=== PATIENT | male | born 1995 | race Caucasian/White ===

== ENCOUNTER 2016-11-09 14:35 | Emergency (ER) | payer OTHER ==
[~2016-11-09] VITALS: Ht 175.3 cm; Wt 77.0 kg
[2016-11-09 14:40] VITALS: Ht 175.3 cm; Wt 77.0 kg
[2016-11-09] MEDS ORDERED: IBUPROFEN 600 MG TAB PO ONE (16:00)
--- NOTE | 2016-11-09 16:20 | RADRPT ---
PROCEDURE: XR Humerus. CLINICAL INDICATION: Generalized pain TECHNIQUE: AP and lateral views of the left humerus were obtained. COMPARISON: No prior studies are available for comparison. FINDINGS: There is normal mineralization and alignment. No fracture or osseous lesion is identified. There are normal joints without evidence of arthritis or effusion. The soft tissues are unremarkable. IMPRESSION: 1. No acute osseous abnormality. RPTAT: [facility] .Matty Aponte MD, MD Date Time Electronically viewed and signed by .Matty Aponte MD, on 11/09/2016 16:20 .d/
[2016-11-09] MEDS ORDERED: IBUP-1542 PO (16:38)
--- NOTE | 2016-11-09 16:42 | ERD ---
ER Documentation Chief Complaint Date/Time DATE: 11/09/16 TIME: 16:40 Chief Complaint LT ARM PAIN S/P FALL TODAY HPI 29 mL complains of pain in his left arm after falling and getting poked with a sharp piece of metal. He has no lacerations or bleeding. The pain and swelling is on the medial aspect of his left biceps. He has no restricted range of motion or weakness except mildly due to pain. ROS All systems reviewed and are negative except as per history of present illness. Medications Home Meds Active Scripts Ibuprofen* (Motrin*) 600 Mg Tab, 600 MG PO Q6, #15 TAB Prov:LINDSAY ANGULO MD 11/09/16 Allergies Allergies: Coded Allergies: No Known Allergy (Unverified , 10/23/15) PMhx/Soc Medical and Surgical Hx: pt denies Medical Hx, pt denies Surgical Hx History of Surgery: No Anesthesia Reaction: No Hx Neurological Disorder: No Hx Respiratory Disorders: No Hx Cardiac Disorders: No Hx Psychiatric Problems: No Hx Miscellaneous Medical Probl: No Hx Alcohol Use: No Hx Substance Use: No Hx Tobacco Use: No Physical Exam Vitals Vital Signs Date Time Temp Pulse Resp B/P Pulse Ox O2 Delivery O2 Flow Rate FiO2 11/09/16 14:40 98.2 80 18 137/89 99 Physical Exam Const: [] Alert, [id number] per Head: Atraumatic Eyes: Normal Conjunctiva ENT: Normal External Ears, Nose and Mouth. Neck: Full range of motion..~ No meningismus. Resp: Clear to auscultation bilaterally Cardio: Regular rate and rhythm, no murmurs Abd: Soft, non tender, non distended. Normal bowel sounds Skin: No petechiae or rashes. There is a bruise and mild swelling on the medial aspect of his left biceps. Is no appreciable deficits or deformities or erythema or warmth. Pulses are 2+ distal to the injury the patient is neurovascular intact without appreciable tendon or neurologic deficit. Back: No midline or flank tenderness Ext: No cyanosis, or edema Neur: Awake and alert Psych: Normal Mood and Affect Results 24 hrs Current Medications Medications (Trade) Dose Ordered Sig/Moi Route PRN Reason Start Time Stop Time Status Last Admin Dose Admin Ibuprofen (Motrin) 600 mg ONCE ONCE PO 11/09/16 16:00 11/09/16 16:01 DC 11/09/16 15:54 Procedures/MDM X-ray left humerus 2V Interpreted by me: Bones: No fracture Joints: No dislocation Foreign body: None. Impression-normal left humerus x-ray Patient was placed in left arm sling. Patient has signs and symptoms of left arm contusion without evidence of fracture, dislocation, foreign body, lacerations, bacterial infection, deficits. He will be treated with ibuprofen instructions for stretching and ice and instruction to follow-up with his primary doctor this week. Return sooner for fevers, redness, new worsening symptoms. Departure Diagnosis: Primary Impression: Injury of upper extremity Encounter type: initial encounter Laterality: left Qualified Code: S49.92XA - Injury of upper extremity, left, initial encounter Condition: Stable Patient Instructions: Contusion, Upper Extremity Additional Instructions: X-ray normal. Likely contusion. Recheck with primary doctor this week or for new or worsening symptoms. Recommend stretching to prevent stiffness. LINDSAY ANGULO MD Nov 09, 2016 16:42
== END 2016-11-09 16:50 | disposition home or self-care (01) ==
LOC: FTE 14:35
DX: S49.92XA Unspecified injury of left shoulder and upper arm, initial encounter (principal); W22.8XXA Striking against or struck by other objects, initial encounter; Y92.9 Unspecified place or not applicable
CPT/HCPCS: 73060; Z7502; Z7610

== ENCOUNTER → 2017-01-10 | Emergency (ER) | payer OTHER ==
[~2017-01-10] VITALS: Ht 175.3 cm; Wt 72.5 kg
[~2017-01-10] MED LIST: IBUP-1542 PO; NAPR-260 PO
[2017-01-10 20:43] VITALS: Ht 175.3 cm; Wt 72.5 kg
[2017-01-10 22:34] VITALS: BP 116/74; PULSE 84; RESP 20; TEMP 99.5
--- NOTE | 2017-01-10 23:02 | ERD ---
ER Documentation Chief Complaint Date/Time DATE: 01/10/17 TIME: 22:56 Chief Complaint sore throat/mouth sores x 4 days. also c/o difficulty swallowing HPI This patient is a 21-year-old male presenting to the emergency department with complaints of multiple mouth sores ongoing intermittently for the past 4 days. Additionally he has throat pain. Symptoms are currently mild. Symptoms are improving. He denies fevers, urinary symptoms, cough, chest pain, shortness of breath, or other symptoms currently. As an after thought, the patient did mention intermittent hematuria, however he has not experiencing that now. 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 The patient states he did not do that. ROS All systems reviewed and are negative except as per history of present illness. Medications Home Meds Active Scripts Naproxen* (Naprosyn*) 500 Mg Tablet, 500 MG PO BID Y for PAIN AND/OR INFLAMMATION, #30 TAB Prov:BAYLEE SOLIZ PA-C 01/10/17 Ibuprofen* (Motrin*) 600 Mg Tab, 600 MG PO Q6, #15 TAB Prov:LINDSAY ANGULO MD 11/09/16 Allergies Allergies: Coded Allergies: No Known Allergy (Unverified , 01/10/17) PMhx/Soc History of Surgery: No Anesthesia Reaction: No Hx Neurological Disorder: No Hx Respiratory Disorders: No Hx Cardiac Disorders: No Hx Psychiatric Problems: No Hx Miscellaneous Medical Probl: No Hx Alcohol Use: No Hx Substance Use: No Hx Tobacco Use: No Physical Exam Vitals Vital Signs Date Time Temp Pulse Resp B/P Pulse Ox O2 Delivery O2 Flow Rate FiO2 01/10/17 22:34 99.5 84 20 116/74 100 Room Air 01/10/17 20:43 99.5 96 20 133/74 99 Physical Exam Const: Nontoxic, well-appearing male in no acute distress. Head: Atraumatic Eyes: Normal Conjunctiva ENT: Normal External Ears, Nose and Mouth. There are multiple shallow ulcerations noted to the mucosa. Neck: Full range of motion..~ No meningismus. Resp: Clear to auscultation bilaterally Cardio: Regular rate and rhythm, no murmurs Abd: Soft, non tender, non distended. Normal bowel sounds Skin: No petechiae or rashes Back: No midline or flank tenderness Ext: No cyanosis, or edema Neur: Awake and alert Psych: Normal Mood and Affect Procedures/MDM 29-year-old male presenting to the emergency department with complaints of ulcerations to his mouth. On physical examination, vitals are within normal limits. The patient does have multiple shallow ulcerations to his mouth most likely a viral etiology. These may be oral apthae, however I advised patient to follow-up with his primary care physician if they do not resolve for further evaluation and possible treatment. The patient is stable for outpatient management with a prescription for Magic mouthwash. I advised the patient that he must follow-up with the primary care physician and possible nephrology for the intermittent hematuria that he has been experiencing. I do not feel that he required further workup in the department at this time as the hematuria was not his chief complaint, and he did have an unremarkable here previously. Strict ER return precautions were discussed. Departure Diagnosis: Primary Impression: Oral aphthae Condition: Fair Patient Instructions: When Your Child Has Mouth Sores Referrals: ON LICENSE OF [facility] YOU HAVE RECEIVED A MEDICAL SCREENING EXAM AND THE RESULTS INDICATE THAT YOU DO NOT HAVE A CONDITION THAT REQUIRES URGENT TREATMENT IN THE EMERGENCY DEPARTMENT. FURTHER EVALUATION AND TREATMENT OF YOUR CONDITION CAN WAIT UNTIL YOU ARE SEEN IN YOUR DOCTORS OFFICE WITHIN THE NEXT 1-2 DAYS. IT IS YOUR RESPONSIBILITY TO MAKE AN APPOINTMENT FOR FOLOW-UP CARE. IF YOU HAVE A PRIMARY DOCTOR --you should call your primary doctor and schedule an appointment IF YOU DO NOT HAVE A PRIMARY DOCTOR YOU CAN CALL OUR PHYSICIAN REFERRAL HOTLINE AT IF YOU CAN NOT AFFORD TO SEE A PHYSICIAN YOU CAN CHOSE FROM THE FOLLOWING [facility] [address] [facility]. [facility] [address] [facility]. [facility] [address] [facility]. [facility] [address] [facility]. [facility] [address] [facility]. [facility]. [address] [place] Additional Instructions: Follow up with your PCP within the next 1-3 days for a repeat evaluation. If you require a referral to a specialist, your Primary Care Provider may be able to provide this for you. In most patient cases, a referral is not required. If you have further questions regarding this matter, please ask your Primary Care Provider. Return the the emergency department immediately if symptoms worsen or change. If you have any questions regarding medications, ask your pharmacist or us before you leave. If any adverse reactions, occur while taking your medications, discontinue the treatment and return to the emergency department immediately. If any new or worsening symptoms, uncontrolled fevers, or other unexplained symptoms occur, return to the emergency department immediately. Take your medications as directed, and complete the entire course of treatment. BAYLEE SOLIZ PA-C Jan 10, 2017 23:02
== END | disposition home or self-care (01) ==
LOC: FTE 20:39
DX: K12.0 Recurrent oral aphthae (principal)
CPT/HCPCS: 99283

== ENCOUNTER 2018-12-10 10:35 | Day surgery (SDC) | payer OTHER ==
[2018-12-10] VITALS (12 sets, daily range): BP systolic 110–124; BP diastolic 60–70; PULSE 65–78; RESP 11–21; Ht 175.3 cm; Wt 74.4 kg
[~2018-12-10] VITALS: Ht 175.3 cm; Wt 74.4 kg
[~2018-12-10 10:35] MED LIST changes: +CEFAZOLIN 2 GM/50 ML (PMX) 50 ML IVPB ONE; -NAPR-260 PO; +NAPR-985 PO
--- NOTE | 2018-12-10 12:47 | HPN ---
Date/Time of Note Date/Time of Note DATE: 12/10/18 TIME: 12:47 Interval H&P Admission Note Pt. seen H&P reviewed: No system changes PAYAL HWANG MD December 10, 2018 12:47
--- NOTE | 2018-12-10 12:48 | PREAC ---
Date/Time of Note Date/Time of Note DATE: 12/10/18 TIME: 12:47 Anesthesia Eval and Record Evaluation Time Pre-Procedure Interview DATE: 12/10/18 TIME: 12:47 Age 23 Sex male NPO: 8 hrs Preoperative diagnosis Nephrolithiasis Planned procedure Cystoscopy Past Medical History Past Medical History: None Surgery & Anesthesia Issues No known issue Meds Anticoagulation: No Beta Sagar within 24 hr: No Reason Beta Sagar not given: Pt. not on B-Sagar Discontinued Scripts Naproxen* (Naprosyn*) 500 Mg Tablet, 500 MG PO BID PRN for PAIN AND/OR INFLAMMATION, #30 TAB Prov:BAYLEE SOLIZ PA-C 01/10/17 Ibuprofen* (Motrin*) 600 Mg Tab, 600 MG PO Q6, #15 TAB Prov:LINDSAY ANGULO MD 11/09/16 Meds reviewed: Yes Allergies Coded Allergies: No Known Allergy (Unverified , 12/10/18) Allergies Reviewed: Yes Labs/Studies Labs Reviewed: Reviewed by anesthesiologist test: N/A Pre-procedure Exam Last vitals Vital Signs Date Temp Pulse Resp B/P (MAP) Pulse Ox O2 O2 Flow FiO2 Time Delivery Rate 12/10/18 98.0 65 16 111/60 100 Room Air 11:22 (77) Airway: Adequate mouth opening Mallampati: Mallampati II Teeth: Normal Lung: Normal Heart: Normal ASA Physical Status ASA physical status: 2 Emergency: None Planned Anesthetic General/MAC: LMA Pre-operative Attestations Prior to commencing anesthesia and surgery, the patient was re-evaluated, there was verification of: *The patient's identity *The results of appropriate recent lab work and preoperative vital signs *The above evaluation not changing prior to induction *Anesthetic plan, risk benefits, alternative and complications discussed with patient/family; questions answered; patient/family understands, accepts and wishes to proceed. SAMUEL NICHOLAS MD December 10, 2018 12:48
[2018-12-10] MEDS ORDERED: CEFAZOLIN 1 GM INJ ONE (12:52)
[2018-12-10] MEDS ORDERED: PROPOFOL 20 ML ONE (12:52)
[2018-12-10] MEDS ORDERED: MIDAZOLAM 1 MG/ML 2 ML INJ ONE (12:53)
[2018-12-10] MEDS ORDERED: IOHEXOL 300MG/ML 30 ML BTL ONE (12:55)
[2018-12-10] MEDS ORDERED: IOHEXOL 300MG/ML 30 ML BTL INJ ONE (13:00)
--- NOTE | 2018-12-10 13:58 | PAC ---
Date/Time of Note Date/Time of Note DATE: 12/10/18 TIME: 13:58 Post-Anesthesia Notes Post-Anesthesia Note Last documented vital signs Vital Signs Date Temp Pulse Resp B/P (MAP) Pulse Ox O2 O2 Flow FiO2 Time Delivery Rate 12/10/18 98.0 65 16 111/60 100 Room Air 11:22 (77) Activity: WNL Respiratory function: WNL Cardiovascular function: WNL Mental status: Baseline Pain reasonably controlled: Yes Hydration appropriate: Yes Nausea/Vomiting absent: Yes SAMUEL NICHOLAS MD December 10, 2018 13:58
[2018-12-10] MEDS ORDERED: FENTAnyl 50 MCG/ML VIAL IV PRN (14:00)
[2018-12-10] MEDS ORDERED: OXYCODONE/ACETAMINOPHEN (5/325) TAB PO PRN (14:00)
[2018-12-10] MEDS ORDERED: HYDROCODONE/APAP (5/325) TAB PO PRN (14:00)
[2018-12-10] MEDS ORDERED: HYDROmorphONE 1 MG/5 ML IV SYRINGE IV PRN (14:00)
[2018-12-10] MEDS ORDERED: KETOROLAC 30 MG INJ IV PRN (14:00)
[2018-12-10] MEDS: ONDANSETRON 4 MG INJ IV PRN ×2 (14:04→15:13)
--- NOTE | 2018-12-10 14:10 | OPR ---
Date/Time of Note Date/Time of Note DATE: 12/10/18 TIME: 14:03 Operative Report Procedure Date: December 10, 2018 Preoperative Diagnosis Gross hematuria Postoperative Diagnosis Same bleeding is coming from the left ureter/left kidney Operation/Procedure Performed Cystoscopy and bilateral retrograde pyelograms. 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 The patient was then positioned in the lithotomy position. He was given 2 g of Ancef IV at the start of the procedure. The genital area was prepped and draped in the usual sterile manner. Timeout was done and the patient was identified by his name, birthdate and the procedure. #22 Lebanese cystoscope sheath was introduced under direct vision through the penile urethra all the way to the bladder the bladder appeared to be clean except for a small tiny area on the anterior bladder wall that may be a urachal remnant. Both ureteral orifices were identified. Spot films were taken between the bladder and the kidneys. Then using an 8 Lebanese cone-tip ureteral catheter bilateral retrograde pyelograms were done. I first did the left side and as soon as I pulled out the cone-tip jets of blood came from the left kidney. There was no defect into the collecting system on either side but yet he was bleeding from the left side .The right side was completely clear and I repeated the retrograde on the left side and the same findings were noted. The small lesion on the anterior bladder wall was then biopsied and its base and edges were electrocoagulated with the round tip Bugbee electrode. Good hemostasis was obtained the bladder was then emptied and the patient was transferred to the recovery room in a stable and satisfactory condition. PAYAL HWANG MD December 10, 2018 14:10
== END 2018-12-10 15:35 | disposition home or self-care (01) ==
LOC: SDS 10:35
PROVIDERS: ATTEND Urology
DX: N32.89 Other specified disorders of bladder (principal)
CPT/HCPCS: 52005; 74430; 88305; J0690; J1170; J1885; J2250; J2405; J3010; Q9967

== ENCOUNTER 2019-03-05 10:28 | Observation (INO) | payer OTHER ==
[2019-03-05] VITALS (18 sets, daily range): BP systolic 102–123; BP diastolic 50–86; PULSE 46–78; RESP 9–32; Ht 175.3 cm; Wt 74.7 kg
[~2019-03-05] VITALS: Ht 175.3 cm; Wt 74.7 kg
[~2019-03-05 10:28] MED LIST changes: -CEFAZOLIN 2 GM/50 ML (PMX) 50 ML IVPB ONE; +CEFAZOLIN 2 GM/50 ML (PMX) 50 ML IVPB SCH; -IBUP-1542 PO; -NAPR-985 PO
[2019-03-05] MEDS ORDERED: IOHEXOL 300MG/ML 30 ML BTL ONE ×2 (11:55→11:57)
[2019-03-05] MEDS ORDERED: ONDANSETRON 4 MG INJ ONE (12:11)
[2019-03-05] MEDS ORDERED: LIDOCAINE 2% (SDV) 5 ML INJ ONE ×2 (12:11→19:34)
[2019-03-05] MEDS ORDERED: MIDAZOLAM 1 MG/ML 2 ML INJ ONE ×2 (12:11→18:07)
[2019-03-05] MEDS ORDERED: FENTAnyl 50 MCG/ML VIAL ONE (12:11)
[2019-03-05] MEDS ORDERED: FAMOTIDINE 20 MG INJ ONE (12:11)
[2019-03-05] MEDS: LACTATED RINGER'S 1,000 ML IV SCH (12:20)
[2019-03-05] MEDS ORDERED: ONDANSETRON 4 MG INJ IV PRN ×2 (13:00→20:00)
[2019-03-05] MEDS ORDERED: EPHEDrine 25 MG/5 ML SYG IV PRN (13:00)
[2019-03-05] MEDS ORDERED: LABETALOL HCL 20MG INJ IV PRN (13:00)
[2019-03-05] MEDS ORDERED: ATROPINE 1 MG/10 ML SYRINGE IV PRN (13:00)
[2019-03-05] MEDS ORDERED: OXYCODONE/ACETAMINOPHEN (5/325) TAB PO PRN ×2 (13:00)
[2019-03-05] MEDS ORDERED: DIPHENHYDRAMINE 50 MG INJ IV PRN ×2 (13:00→20:00)
[2019-03-05] MEDS ORDERED: HYDROmorphONE 1 MG/5 ML IV SYRINGE IV PRN ×5 (13:00→20:00)
[2019-03-05] MEDS ORDERED: ALBUTEROL 0.083% (NEB) 2.5 MG/3 ML AMP HHN PRN (13:00)
[2019-03-05] MEDS ORDERED: morphine 2 MG INJ IV PRN ×2 (13:00)
[2019-03-05] MEDS ORDERED: FENTAnyl 50 MCG/ML VIAL IV PRN ×3 (13:00→20:00)
[2019-03-05] MEDS ORDERED: KETOROLAC 15 MG INJ IV PRN (13:00)
[2019-03-05] MEDS ORDERED: LEVALBUTEROL (NEB) 0.63 MG/3 ML AMP HHN PRN (13:00)
[2019-03-05] MEDS ORDERED: hydrALAzine 20 MG INJ IV PRN (13:00)
[2019-03-05] MEDS ORDERED: LIDOCAINE 2% 20 ML UROJET SYRINGE ONE (18:46)
[2019-03-05] MEDS ORDERED: PROPOFOL 20 ML ONE (19:34)
[2019-03-05] MEDS ORDERED: CEFAZOLIN 1 GM INJ ONE (19:35)
[2019-03-05] MEDS ORDERED: HYDROCODONE/APAP (5/325) TAB PO PRN (20:00)
[2019-03-05] MEDS ORDERED: MEPERIDINE 25 MG INJ IV PRN (20:00)
[2019-03-06 08:17] VITALS: BP 116/69; PULSE 81; RESP 18
[2019-03-06] MEDS: LACTATED RINGER'S 1,000 ML IV SCH (12:00)
== END 2019-03-06 13:21 | disposition home or self-care (01) ==
LOC: SDS 10:28 → REC 21:54 → SDS 21:54 → MS1 22:40
PROVIDERS: ADMIT Urology; ATTEND Urology
DX: R31.9 Hematuria, unspecified (principal)
CPT/HCPCS: 52332; 74430; C2617; G0378; J0690; J1170; J2250; J2405; J3010; J7120; Q9967